=== PATIENT | female | born 1975 | race Hispanic/Latino ===

== ENCOUNTER 2017-05-06 13:46 | Outpatient (CLI) | payer SELFPAY | END 2017-05-06 13:47 | disposition home or self-care (01) | LOC: BICMAMMO 13:46 | PROVIDERS: ATTEND Nurse Practitioner Family | DX: Z12.31 Encounter for screening mammogram for malignant neoplasm of breast (principal) | CPT/HCPCS: 77063; 77067 ==

== ENCOUNTER 2018-05-01 07:15 | Inpatient (IN) | payer SELFPAY ==
[2018-05-01] MEDS ORDERED: Ondansetron PF 4 MG/2 ML Vial IVP PRN (08:12)
[2018-05-01] MEDS ORDERED: Acetaminophen 500 MG TAB PO PRN (08:12)
[2018-05-01] MEDS ORDERED: Promethazine HCl 25 MG/ML VIAL IM PRN (08:12)
[2018-05-01] MEDS ORDERED: Lactated Ringer's 1,000 ML IV SCH ×3 (08:15→21:30)
--- NOTE | 2018-05-01 08:33 | PDOC.EVN ---
Event Note - Event Note Event Note: Faculty H&P (consult) Attestation 42 yo G1Po at 37 weeks and 2 weeks with known cardiac failure of unknown etiology by ECHO (NYHA class I)...EJ last check was preserved...Diastolic HR grade 2. This was diagnosed EARLY in and followed by Cardiology ( [place]?). Here for scheduled induction based on this HX...no meds as ASX at this time. On Low Dose ASA. This cardiac issue was found on PE with murmer. Patient has just arrived in L&D for induction. Full write up pending eval by resident team Our assessment and plan is to: 1. Fully assess 2. Notify cardiology VIVIANA 3. Check CERVIX 4. Early term delivery medically indicated due to cardiac dysfunctioin to prevent decompensation with advancing EGA 5. AMA: NICU to eval child
--- NOTE | 2018-05-01 09:03 | PDOC.FPROB ---
FMR OB H&P: HPI - History of Present Illness Chief Complaint: Medically indicated IOL for HFpEF Indentification: 42 year old at 37.1 wks by LMP/10.2 wk sono History of Present Illness: 42 year old at 37.1 wks by LMP/8.1 wk sono presents for medically indicated IOL for HFpEF. Patient is AMA at 41 wks, this is her first . She has Grade II diastolic HF, NYHA Class I. She has followed with Cardiology, Dr. Her, and MFM. Recommendations for IOL at 37 wks. Patient denies vaginal bleeding, vaginal discharge, LoF, contractions. Primary Care Physician: GERMANIA Mae FMR OB H&P: Current - Care : 1 Para: 0 Gestational age: 37.1 wks Due date: 05/21/2018 Dating Criteria: LMP/10.2 wk sono - OB Labs Blood type: O RH: positive Antibody Screen: negative HIV: negative RPR: negative HepBsAg: negative Rubella: immune Quad screen: negative Gonorrhea: negative Chlamydia: negative Pap Smear: NILM, HR HPV + 1 hour gtt: 89 Additional labs: BNP: 1389 24h protein: 120 FMR OB H&P: History - Past Medical History PMH: Denies - OB History OB History: HFpEF Grade II: NYHA Class I: Last seen by Dr. Her on 04/21/2018. Echo stable. BNP 1389. Mild concentric LVH, bi-atrial enlargement. LVEF 60-65%. On ASA. AMA: NIPT negative. Followed with MFM. Growth scans appropriate. On ASA. HRHPV: Co-testin 10/2018 Posterior fibroid: Placenta anterior. growth appropriate. EFW at 29.2 wks 1398g (54%). UA S/D ratio 2.38 Anemia of Placenta abnormalities: Multiple large lakes. TORCH workup negative. Noted to have placental vs. uterine synechia in lower segment at one time, but not mentioned in 2T sono. - GAS REGULATOR REPAIRER History GAS REGULATOR REPAIRER History: HR HPV: repeat cotesting in 10/2018. - Surgical History Sx History: Denies - Social History Social History: Denies alcohol, tobacco, or drug use. - Family History Family History: Insignificant FMR OB H&P: Medications - Current Allergies/Adverse Reactions: Allergies Allergy/AdvReac Type Severity Reaction Status Date / Time No Known Allergies Allergy Verified 05/01/18 08:01 FMR OB H&P: ROS - Review of Systems General: denies: fever/chills, weight/appetite/sleep changes Eyes: denies: eye pain, vision changes ENT: denies: nasal congestion, rhinorrhea, sore throat Cardiovascular: denies: chest pain, palpitation, edema Respiratory: reports: shortness of breath (over past 2 weeks). denies: cough, congestion Gastrointestinal: denies: abdominal pain, nausea, vomiting, diarrhea Genitourinary (Female): denies: incontinence, dysuria, vaginal discharge, vaginal pain, vaginal bleeding, contractions Musculoskeletal: denies: pain, stiffness Neurologic: denies: numbness, syncope Integumentary: denies: itching, rash Endocrine: denies: cold intolerance Hematologic/Lymphatic: denies: prolonged or excessive bleeding Psychological: denies: depression, anxiety FMR OB H&P: Vital Signs - Maternal Vital signs: BP 114/73 Pulse 70 Afebrile - Heart Tones Baseline: 130 Variability: moderate Acceleration: present Deceleration: absent Category: category 1 [place] contractions every: Irritability FMR OB H&P: Physical Exam - Physical Exam General: NAD, awake, alert and oriented HEENT: EOMI, MMM, grossly normal vision, grossly normal hearing Neck: supple Heart: RRR, normal S1/S2, other (4/6 systolic murmur) General: CTAB, no respiratory distress Abdomen: soft, gravid, non-tender Musculoskeletal: pulses present, FROM in all four extremities Neurological: no tremor, no focal deficit Skin: no rash, capillary refill <2 seconds Lymphatic: no unusual bruising or bleeding, no purpura Psychiatric: intact recent and remote memory, good judgement and insight, normal mood and affect FMR OB H&P: A/P - Problem List (1) Term Current Visit: Yes Status: Acute Code(s): Z34.80 - ENCOUNTER FOR SUPRVSN OF NORMAL , UNSP TRIMESTER (2) (HFpEF) heart failure with preserved ejection fraction Current Visit: Yes Status: Acute Code(s): I50.30 - UNSPECIFIED DIASTOLIC ( CONGESTIVE) HEART FAILURE (3) NYHA class 1 heart failure with preserved ejection fraction Current Visit: Yes Status: Acute Code(s): I50.30 - UNSPECIFIED DIASTOLIC ( CONGESTIVE) HEART FAILURE (4) Anemia affecting Current Visit: Yes Status: Acute Code(s): O99.019 - ANEMIA COMPLICATING , UNSPECIFIED TRIMESTER (5) AMA (advanced maternal age) multigravida 35+ Current Visit: Yes Status: Acute Code(s): O09.529 - SUPERVISION OF ELDERLY MULTIGRAVIDA, UNSPECIFIED TRIMESTER (6) Fibroid Current Visit: Yes Status: Acute Code(s): D21.9 - BENIGN NEOPLASM OF CONNECTIVE AND OTHER SOFT TISSUE, UNSP (7) Placental abnormality Current Visit: Yes Status: Acute Code(s): O43.109 - MALFORMATION OF PLACENTA , UNSPECIFIED, UNSPECIFIED TRIMESTER Disposition: 42 year old at 37.1 wks by LMP/10.2 wk sono presents for medically indicated IOL for HFpEF 1. Term IUP presents for IOL - 37.1 wks 2. HFpEF, Grade II - Echo in stable - Followed with Cardiology, Dr. Her (last seen 04/21/2018) - Prior BNP 1389 - Cardiology consulted; appreciate recs - PAVING PLANT OPERATOR consulted; appreciate recs - Repeat BNP, CMP - On ASA - Patient reports worsening shortness of breath over last 2 weeks, prompting IOL 3. AMA - NIPT negative - Followed with MFM - Growth scans appropriate - BPP/NST's reassuring - Category I strip - On ASA 4. Posterior fibroid - Placenta anterior - growths appropriate - 8x7 cm, stable - Risk for PPH 5. Placental abnormalities - Multiple large lakes - TORCH titers negative - Appropriate growth; Last EFW at 29.2 wks documented shows 1398 g (54%), UA S/ D ratio 2.38 6. Anemia of - 11.1/32 H/H - Continue to monitor - H&H pending 7. HR HPV - Repeat cotesting 10/2018 8. GERD - On medication Dispo: Plan to have patient evaluated by Cardiology and PAVING PLANT OPERATOR prior to initiation of IOL. Will perform cervical check and plan for pitocin/cytotec depending on favorability of cervix once ok'd by specialists. Discussion: Date/Time: 05/01/18 0901 This H&P was discussed with Dr. Alan who agrees with the above documentation and plan. OBGYN Regulator Assembler Faculty Note: Cardiology aware and he will come eval her. She is closed and thick. Position vertex. MFM had discussed with [place] () and cleared for early term delivery....planned for induction. I have reviewed the case with Dr Armstrong and agree with plan. MD Nile Signature: Dasia Armstrong, DO PGY-2 Addendum - Attending - Attending Attestation Date/Time: 05/01/18 4330 I personally evaluated the patient and discussed the management with Dr. Armstrong I agree with the History, Examination, Assessment and Plan documented above with any addition or exceptions noted below- 42 year old at 37.1 wks by LMP /8.1 wk sono presents for medically indicated IOL for HFpEF. Patient is AMA at 41 wks, this is her first . She has Grade II diastolic HF, NYHA Class I. She has followed with Cardiology, Dr. Her, and [facility]- Dr. Dewey. Recommendations for IOL at 37 wks. Patient denies vaginal bleeding, vaginal discharge, LoF, contractions. Afebrile VSS SVE closed/thick/high per resident. Category 1 FHTs. [place]- occasional ctx. A/P: 1) IUP@37 1/7 weeks with HFpEF- NY Heart class 1- will consult cardiology and plan to proceed with induction if no contraindications by cardiology.
[2018-05-01 09:58] LABS: Hemoglobin 12.6 g/dL (12.0-16.0); Mean Corpuscular HGB CONC 33.6 g/dL (32.0-36.0); Mean Corpuscular Hemoglobin 31.7 pg (27.0-31.0); Mean Corpuscular Volume 94.5 fL (78.0-98.0); Platelet Count 196 thou/uL (130-400); RBC Distribution Width 12.6 % (11.5-14.5); Red Blood Cell (RBC) Count 3.97 mill/uL (4.20-5.40); White Blood Cell (WBC) Count 9.5 thou/uL (4.8-10.8)
[2018-05-01 10:20] LABS: ALT (SGPT) 28 U/L (8-55); AST (SGOT) 33 U/L (5-34); Albumin 3.2 g/dL (3.5-5.0); Alkaline Phosphatase 243 U/L (40-150); Anion Gap 14 mmol/L (10-20); BUN (Urea Nitrogen) 9 mg/dL (7.0-18.7); Calc. Creatinine Clearance 0 mL/min (70-130); Calcium 8.9 mg/dL (7.8-10.44); Carbon Dioxide 18 mmol/L (22-29); Chloride 108 mmol/L (98-107); Estimated GFR-MDRD Greater than 90; Globulin 3.2 g/dL (2.4-3.5); Glucose 72 mg/dL (70-105); Protein, Total 6.4 g/dL (6.0-8.3); Sodium 136 mmol/L (136-145)
--- NOTE | 2018-05-01 10:34 | PDOC.EVN ---
Event Note - Event Note Event Note: Cervical exam at 10:30 closed/thick/high Bedside sono performed, confirming cephalic presentation. Dasia Armstrong, DO PGY-2
[2018-05-01 10:38] LABS: HBSAg Index 0.26 S/CO (0-0.99); Hep B Surf Ag Non-Reactive S/CO (NonReactive)
[2018-05-01 10:44] LABS: Syphilis Antibody Nonreactive (Nonreactive); Syphilis Antibody Index 0.05 S/CO (<1.00 Non-Reactive)
--- NOTE | 2018-05-01 11:02 | PDOC.APC ---
Antepartum Consult SUJATHA REYNOLDS is a 42 year old female at [] gestational weeks. OBGYN Consult requested by Dr Adela Puente () MFM has cleared the patient for early term induction due to diastolic dysfunction. She is on low dose ASA but not lovenox. Cardiology aware. Please see my other event notes and H&P entry for full details. DX: idiopathic cardiac dysfunction (diastolic), for early term induction. Labs: Ante Labs Blood Type O POSITIVE 05/01/18 09:48 Hep Bs Antigen Non-Reactive S/CO (NonReactive) 05/01/18 09:48
[2018-05-01] MEDS ORDERED: ePHEDrine/0.9% NaCl/PF SYRINGE 50 mg/10 ml ONE (11:11)
[2018-05-01 11:12] VITALS: BMI 28.7
[2018-05-01] MEDS ORDERED: Lidocaine 1% (PF) 30 ML VIAL SC PRN (21:15)
[2018-05-01] MEDS ORDERED: NS / Oxytocin 40 units/1000ml 1,000 ML IV PRN (21:15)
[2018-05-01] MEDS: Lactated Ringer's 1,000 ML IV SCH (21:42)
[2018-05-01] MEDS: Misoprostol 100 MCG TAB VAG SCH (21:42)
--- NOTE | 2018-05-02 00:33 | CON ---
DATE OF CONSULTATION: HISTORY OF PRESENT ILLNESS: This is a 42-year-old female, who has been evaluated by Dr. Her before. She is in the hospital to be induced at the present time. She has been told that she had a heart murmur since she was born. She has never had problems with recent chest pains or shortness of breath. Echocardiogram in the office in December 2017 revealed ejection fraction of 60% to 65% with grade 2 diastolic dysfunction, mild concentric left ventricular hypertrophy, biatrial enlargement, mild tricuspid regurgitation, and mild mitral regurgitation. It was felt that this would not cause any significant hemodynamic problems during delivery. PAST MEDICAL HISTORY: No major illnesses except the murmur. PAST SURGICAL HISTORY: None. MEDICATIONS: 1. Aspirin 81 mg daily. 2. vitamins. ALLERGIES: NONE. SOCIAL HISTORY: She does not smoke. PHYSICAL EXAMINATION: VITAL SIGNS: Blood pressure 114/73 pulse of 79. HEENT: PERRL. CHEST: Clear. CARDIAC: S1, S2 normal without any S3, S4. There is a 2 to 3/6 systolic ejection murmur along the left sternal border. Carotid upstrokes normal. ABDOMEN: . EXTREMITIES: Reveal trace pretibial edema. NEUROLOGIC: Grossly intact. SKIN: Warm and dry. LABORATORY DATA: CBC is unremarkable. Sodium 136, potassium 4.0, chloride 108, carbon dioxide 18, BUN 9, creatinine 0.56. BNP 631.4. ASSESSMENT: 1. Term gestational . 2. Evidence of diastolic dysfunction on echocardiogram. 3. Mild left ventricular hypertrophy. PLAN: The patient will be labor induced and we will follow the patient with you. Job ID: [id number] MTDD
--- NOTE | 2018-05-02 02:09 | PDOC.LDPN ---
Labor & Delivery Progress Note - Subjective Subjective: comfortable - Objective Abnormal vital signs: 84/61 BP General: NAD, resting Dilation: 0 Effacement: 0% Station: -3 FHT: category 1 (150/mod/+accel/no decel) [place] contractions every: 2-4 min Plan: labor augmentation -: 42 year old at 37.2 wks by LMP/10.2 wk sono presents for medically indicated IOL for HFpEF IOL - 37.2 wks - Cardiology consulted; Dr. Cobb cleared patient for induction - LR @ 75 considering HFpEF, will closely monitor urine output - Cat 1 strip, ctx q2-4 min. - closed/thick/high @ 21:30 - cytotec placed - closed/thick/high @ 00:45 - will plan to wait 30 minutes to see if ctx space out, then will consider placing another cytotec
[2018-05-02] MEDS ORDERED: NS w/ Oxytocin 10 units 500 ML ONE (08:19)
[2018-05-02] MEDS ORDERED: Misoprostol 200 MCG TAB PR PRN (08:23)
[2018-05-02] MEDS ORDERED: NS w/ Oxytocin 10 units 500 ML IV SCH (08:30)
--- NOTE | 2018-05-02 10:05 | PDOC.LDPN ---
Labor & Delivery Progress Note - Subjective Subjective: comfortable, no concerns - Objective Vital signs reviewed and normal: yes General: NAD, resting Uterine fundus: non tender SVE: bloody show Dilation: 4 Effacement: 75% (80) Station: -2 FHT: category 1, variability present (moderate, baseline 130s,accels present, no decels) [place] contractions every: 4-6 - Assessment (1) (HFpEF) heart failure with preserved ejection fraction Code(s): I50.30 - UNSPECIFIED DIASTOLIC (CONGESTIVE) HEART FAILURE Current Visit: Yes Status: Acute (2) AMA (advanced maternal age) multigravida 35+ Code(s): O09.529 - SUPERVISION OF ELDERLY MULTIGRAVIDA, UNSPECIFIED TRIMESTER Current Visit: Yes Status: Acute (3) Anemia affecting Code(s): O99.019 - ANEMIA COMPLICATING , UNSPECIFIED TRIMESTER Current Visit: Yes Status: Acute (4) Fibroid Code(s): D21.9 - BENIGN NEOPLASM OF CONNECTIVE AND OTHER SOFT TISSUE, UNSP Current Visit: Yes Status: Acute (5) NYHA class 1 heart failure with preserved ejection fraction Code(s): I50.30 - UNSPECIFIED DIASTOLIC (CONGESTIVE) HEART FAILURE Current Visit: Yes Status: Acute (6) Term Code(s): Z34.80 - ENCOUNTER FOR SUPRVSN OF NORMAL , UNSP TRIMESTER Current Visit: Yes Status: Acute -: 42 yo at 37.2 by LMP c/w 10.2 wk US presents for medically induced IOL due to HFpEF IOL -Cardiology consulted: Dr. Lomas cleared pt -LR @75, will monitor closely -Cat 1 strip, contractions 4-6 minutes -Pitocin at 6 -Check /-2 -Recheck in 3-4 hrs
--- NOTE | 2018-05-02 12:29 | PDOC.LDPN ---
Labor & Delivery Progress Note - Subjective Subjective: comfortable - Objective Vital signs reviewed and normal: yes General: NAD SVE: 5/90%/-2 FHT: category 1 [place] contractions every: q3 min - Assessment (1) Term Code(s): Z34.80 - ENCOUNTER FOR SUPRVSN OF NORMAL , UNSP TRIMESTER Current Visit: Yes Status: Acute (2) (HFpEF) heart failure with preserved ejection fraction Code(s): I50.30 - UNSPECIFIED DIASTOLIC (CONGESTIVE) HEART FAILURE Current Visit: Yes Status: Acute (3) NYHA class 1 heart failure with preserved ejection fraction Code(s): I50.30 - UNSPECIFIED DIASTOLIC (CONGESTIVE) HEART FAILURE Current Visit: Yes Status: Acute (4) Anemia affecting Code(s): O99.019 - ANEMIA COMPLICATING , UNSPECIFIED TRIMESTER Current Visit: Yes Status: Acute (5) AMA (advanced maternal age) multigravida 35+ Code(s): O09.529 - SUPERVISION OF ELDERLY MULTIGRAVIDA, UNSPECIFIED TRIMESTER Current Visit: Yes Status: Acute (6) Fibroid Code(s): D21.9 - BENIGN NEOPLASM OF CONNECTIVE AND OTHER SOFT TISSUE, UNSP Current Visit: Yes Status: Acute (7) Placental abnormality Code(s): O43.109 - MALFORMATION OF PLACENTA, UNSPECIFIED, UNSPECIFIED TRIMESTER Current Visit: Yes Status: Acute -: IUP@ 37 2/7 weeks with HFpEF undergoing induction Continue pitocin; patient progressing well. Category 1 FHTs. Continue to monitor fluids closely.
[2018-05-02] MEDS: Lactated Ringer's 1,000 ML IV SCH (12:56)
[2018-05-02] MEDS ORDERED: Fentanyl 4 mcg/Bup 0.1% Cadd 100 ML ONE (15:03)
[2018-05-02] MEDS ORDERED: Lidocaine 1.5%/Epinephrine 1:200,000 5 ML AMPUL IJ ONE (15:04)
--- NOTE | 2018-05-02 15:49 | PDOC.LDPN ---
Labor & Delivery Progress Note - Subjective Subjective: painful contractions - Objective Vital signs reviewed and normal: yes General: breathing through contractions SVE: 5/90%/-2 FHT: category 1 [place] contractions every: q2 min - Assessment (1) Term Code(s): Z34.80 - ENCOUNTER FOR SUPRSRIDHAR OF NORMAL , UNSP TRIMESTER Current Visit: Yes Status: Acute (2) (HFpEF) heart failure with preserved ejection fraction Code(s): I50.30 - UNSPECIFIED DIASTOLIC (CONGESTIVE) HEART FAILURE Current Visit: Yes Status: Acute (3) NYHA class 1 heart failure with preserved ejection fraction Code(s): I50.30 - UNSPECIFIED DIASTOLIC (CONGESTIVE) HEART FAILURE Current Visit: Yes Status: Acute (4) Anemia affecting Code(s): O99.019 - ANEMIA COMPLICATING , UNSPECIFIED TRIMESTER Current Visit: Yes Status: Acute (5) AMA (advanced maternal age) multigravida 35+ Code(s): O09.529 - SUPERVISION OF ELDERLY MULTIGRAVIDA, UNSPECIFIED TRIMESTER Current Visit: Yes Status: Acute (6) Fibroid Code(s): D21.9 - BENIGN NEOPLASM OF CONNECTIVE AND OTHER SOFT TISSUE, UNSP Current Visit: Yes Status: Acute (7) Placental abnormality Code(s): O43.109 - MALFORMATION OF PLACENTA, UNSPECIFIED, UNSPECIFIED TRIMESTER Current Visit: Yes Status: Acute -: IUP@37 2/7 weeks undergoing induction Pitocin @18 mu/min Category 1 FHTs Desires epidural. will consult anesthesia. Recheck after epidural and attempt to AROM.
[2018-05-02] MEDS ORDERED: Ondansetron PF 4 MG/2 ML Vial ONE ×2 (16:21→17:47)
[2018-05-02] MEDS ORDERED: ePHEDrine 50 MG/ML VIAL ONE (16:21)
--- NOTE | 2018-05-02 16:57 | PDOC.EVN ---
Event Note - Event Note Event Note: CTSP by Dr. Alan re: SVE. G1 at 37 weeks being induced for CHF, uncertain etiology. Has known 8-10 cm posterior fibroid. Pt. has recently spontaneously ruptured, epidural in place. SVE by me c/w face presentation at -3 station, mentum posterior. Arch appears narrowed. USG at bedside also suggests face presentation. Fhts are stable, small variables with good return are noted. Plan; Consider 1* C/s for malpresentation.
[2018-05-02] MEDS ORDERED: Bicitra 30 ML UDCUP PO SCH (17:00)
[2018-05-02] MEDS ORDERED: Azithromycin 500 MG VIAL ONE (17:07)
--- NOTE | 2018-05-02 17:09 | PDOC.LDPN ---
Labor & Delivery Progress Note - Subjective Subjective: comfortable - Objective Vital signs reviewed and normal: yes General: NAD SVE: 5/-3 FHT: category 1 [place] contractions every: q2min - Assessment (1) Term Code(s): Z34.80 - ENCOUNTER FOR SUPRVSN OF NORMAL , UNSP TRIMESTER Current Visit: Yes Status: Acute (2) (HFpEF) heart failure with preserved ejection fraction Code(s): I50.30 - UNSPECIFIED DIASTOLIC (CONGESTIVE) HEART FAILURE Current Visit: Yes Status: Acute (3) NYHA class 1 heart failure with preserved ejection fraction Code(s): I50.30 - UNSPECIFIED DIASTOLIC (CONGESTIVE) HEART FAILURE Current Visit: Yes Status: Acute (4) Anemia affecting Code(s): O99.019 - ANEMIA COMPLICATING , UNSPECIFIED TRIMESTER Current Visit: Yes Status: Acute (5) AMA (advanced maternal age) multigravida 35+ Code(s): O09.529 - SUPERVISION OF ELDERLY MULTIGRAVIDA, UNSPECIFIED TRIMESTER Current Visit: Yes Status: Acute (6) Fibroid Code(s): D21.9 - BENIGN NEOPLASM OF CONNECTIVE AND OTHER SOFT TISSUE, UNSP Current Visit: Yes Status: Acute (7) Placental abnormality Code(s): O43.109 - MALFORMATION OF PLACENTA, UNSPECIFIED, UNSPECIFIED TRIMESTER Current Visit: Yes Status: Acute -: IUP@ 37 2/7 weeks undergoing induction for HFpEF Patient comfortable with epidural. SROM clear fluid at 1611 SVE /.3- face presentation; confirmed on USG and by Dr. Dickson. Discussed situation with patient and . Discussed that with face presentation and mentum posterior and uterine fibroid that she will not be able to deliver vaginally. Discussed need to proceed with 1*C/S. All questions answered. Will contact anesthesia and nursery.
[2018-05-02] MEDS ORDERED: Bicitra 30 ML UDCUP ONE (17:10)
[2018-05-02] MEDS ORDERED: Lidocaine 2% 10 ML INJ ONE (17:16)
[2018-05-02] MEDS ORDERED: EPINEPHrine 1 MG/ML AMP ONE (17:16)
[2018-05-02] MEDS ORDERED: MORPHINE 5 MG/10 ML PF VIAL ONE (17:46)
[2018-05-02] MEDS ORDERED: Fentanyl 100 MCG/2 ML VIAL ONE (17:46)
[2018-05-02] MEDS ORDERED: Oxytocin 10 UNITS/ML VIAL ONE (17:46)
[2018-05-02] MEDS ORDERED: Promethazine HCl 25 MG/ML VIAL IM PRN ×2 (18:01→19:40)
[2018-05-02] MEDS ORDERED: Ondansetron HCl/PF 4 MG/2 ML Vial IVP PRN (18:01)
[2018-05-02] MEDS ORDERED: Naloxone HCl 0.4 mg/ml Vial IVP PRN ×2 (18:01)
[2018-05-02] MEDS ORDERED: Ondansetron PF 4 MG/2 ML Vial IVP PRN ×2 (18:01→19:40)
[2018-05-02] MEDS ORDERED: Meperidine HCl/PF 25 MG/ML VIAL SLOW IVP PRN (18:01)
[2018-05-02] MEDS ORDERED: HYDROmorphone 2 MG/ML VIAL SLOW IVP PRN (18:01)
[2018-05-02] MEDS ORDERED: diphenhydrAMINE 50 MG/ML VIAL IVP PRN (18:01)
[2018-05-02] MEDS ORDERED: Promethazine HCl 25 MG SUPP PR PRN (18:01)
[2018-05-02] MEDS ORDERED: Naloxone HCl 0.4 mg/ml Vial IV PRN (18:01)
[2018-05-02] MEDS ORDERED: L&D-Morphine 4 MG/ML VIAL SLOW IVP PRN (18:01)
[2018-05-02] MEDS ORDERED: Acetaminophen 1,000 MG in Premix Bag 1 BAG IVPB PRN (18:01)
[2018-05-02] MEDS ORDERED: Hydrocerin (Eucerin) Cream 120 gm Jar TOP PRN (18:01)
[2018-05-02] MEDS ORDERED: Communication Order-Pharmacy FS SCH (18:15)
[2018-05-02] MEDS ORDERED: Ketorolac Tromethamine 30 MG/ML VIAL IVP SCH ×2 (18:15→23:59)
[2018-05-02] MEDS ORDERED: Lanolin Ointment 7 GM TUBE TOP PRN (19:40)
[2018-05-02] MEDS: Docusate Calcium (SURFAK) 240 MG CAP PO SCH (22:06)
[2018-05-02] MEDS: Ferrous Sulfate 325 MG TAB PO SCH (22:06)
--- NOTE | 2018-05-03 00:40 | PDOC.OBPPN ---
FMR OB PN: Subj - Interval History Day: 1 FMR OB PN: Obj - Maternal Vital signs: BP: [] HR: [] RR: [] Tmax: [] Pox: []% on [] Wt: [] FMR OB PN: A/P Discussion: Date/Time: 05/03/1837 This H&P was discussed with [] and [] who agree with the above documentation and plan. - History of Present Illness History of Present Illness: 42 yo G1 @37.2 s/p primary LTCS 2/2 posterior uterine fibroid, face presentation, and failure to progress. Doing well. Endorses minimal abdominal pain. Urine draining blood tinged urine currently. Endorses passage of some small clots and mild vaginal bleeding. - Allergies/Adverse Reactions Allergies Allergy/AdvReac Type Severity Reaction Status Date / Time No Known Allergies Allergy Verified 05/01/18 08:01 - Home Medications Medication Instructions Recorded Confirmed Type Vitamin 1 tablet PO DAILY 05/02/18 05/02/18 History - History PMHx: PSHx: FHx: Social:
--- NOTE | 2018-05-03 00:48 | PDOC.PP ---
Post Progress Note Post Day #: 0 Subjective: 42 yo G1 @37.2 s/p primary LTCS 2/2 posterior uterine fibroid, face presentation, and failure to progress. Doing well. Endorses minimal abdominal pain. Urine draining blood tinged urine currently. Endorses passage of some small clots and mild vaginal bleeding. PO intake tolerated: yes Flatus: no Ambulation: no Vital Signs (12 hours) Temp Pulse Resp BP Pulse Ox 05/03/18 00:10 98.2 F 75 16 107/58 L 95 05/02/18 21:35 97.7 F 73 16 101/68 97 Weight Weight 66.678 kg - Physical Examination General: NAD Cardiovascular: no m/r/g, RRR Respiratory: clear to auscultation bilaterally, non-labored breathing Deviation from normal: hypoactive bowel sounds Fundus firm & at: umbilicus Skin: CS incision dry & intact Neurological: no gross focal deficits Psychiatric: A&Ox3, normal affect Result Diagrams: 05/03/18 06:23 05/01/18 09:48 Additional Labs: Post Labs Blood Type O POSITIVE 05/01/18 09:48 Hep Bs Antigen Non-Reactive S/CO (NonReactive) 05/01/18 09:48 (1) Term Code(s): Z34.80 - ENCOUNTER FOR SUPRN OF NORMAL , UNSP TRIMESTER Status: Acute (2) S/P primary low transverse Code(s): Z98.891 - HISTORY OF UTERINE SCAR FROM PREVIOUS SURGERY Status: Acute (3) (HFpEF) heart failure with preserved ejection fraction Code(s): I50.30 - UNSPECIFIED DIASTOLIC (CONGESTIVE) HEART FAILURE Status: Acute (4) AMA (advanced maternal age) multigravida 35+ Code(s): O09.529 - SUPERVISION OF ELDERLY MULTIGRAVIDA, UNSPECIFIED TRIMESTER Status: Acute (5) Fibroid Code(s): D21.9 - BENIGN NEOPLASM OF CONNECTIVE AND OTHER SOFT TISSUE, UNSP Status: Acute (6) Placental abnormality Code(s): O43.109 - MALFORMATION OF PLACENTA, UNSPECIFIED, UNSPECIFIED TRIMESTER Status: Acute (7) Anemia affecting Code(s): O99.019 - ANEMIA COMPLICATING , UNSPECIFIED TRIMESTER Status : Acute - Assessment/Plan 42 yo G1 @37.2 s/p primary LTCS 2/2 posterior uterine fibroid, face presentation, and failure to progress, pod 0 #sIUP, delivered via primary LTCS- -continue routine post op care. Pt initially with lightly blood tinged urine, now boinfacio in the urinary catheter tubing. Continue to monitor urine output. Adequate so far. ~36ml/hr; plan to pull kay in the am. -pain controlled; norco, ibuprofen, tylenol prn pain -pt tolerating ice chips; continue to advance diet as tolerated -encourage ambulation after pulling kay in the am -pt has not passed flatus or had a bowel movement; will provide bowel regimen and continue to monitor -passing of small clots and bleeding; continue to monitor -incision clean, dry, and intact -hemagram in the am #HFpEF- -NYHA Class I: Last seen by Dr. Her on 04/21/2018. Echo stable. BNP 1389. Mild concentric LVH, bi-atrial enlargement. LVEF 60-65%. -systolic murmur on exam, stable from PNC, no s/s of fluid overload -continue to monitor I/Os and UOP #Anemia of -hemagram pending -iron po bid #AMA: NIPT negative. #HRHPV: Co-testing 10/2018 #Posterior fibroid #Placenta abnormalities: Multiple large lakes. TORCH workup negative. Addendum - Attending - Attending Attestation Date/Time: 05/03/18 3453 I personally evaluated the patient and discussed the management with Dr. Miller I agree with the History, Examination, Assessment and Plan documented above with any addition or exceptions noted below. Pt seen 6 hrs postoperatively. Pain controlled. Denies dizziness, cp, sob. No blood seen in kay bag. Urine output adequate Continue routine postoperative care
--- NOTE | 2018-05-03 01:47 | OP ---
DATE OF PROCEDURE: 05/02/2018 PRIMARY SURGEONS: 1. Kevin Mae M.D. 2. Meron Groves MD Attending SURGEON: Dr. Alfreda Stein., Dr. Flo Dickson PROCEDURE: Primary low transverse . PREOPERATIVE DIAGNOSES: 1. Term intrauterine . 2. Heart failure with preserved ejection fraction, grade 2. 3. Advanced maternal age. 4. Posterior fibroid. 5. Anemia of . 6. 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 POSTOPERATIVE DIAGNOSES: 1. Term intrauterine . 2. Heart failure with preserved ejection fraction, grade 2. 3. Advanced maternal age. 4. Posterior fibroid. 5. Anemia of . 6. 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 ANESTHESIA: Epidural. INDICATIONS: This is a 42-year-old G1, P0 female at 37 and 2 weeks gestation who was induced secondary to diastolic heart failure with new symptoms of shortness of breath on recommendation of [facility]. At dilatation of 5 cm, the baby was noted to have face presentation, thus on considering posterior fibroid, decision was made for section. PROCEDURE IN DETAIL: After risks, benefits, and alternatives were explained to the patient, she gave informed consent. Preoperative antibiotics included cefazolin 2 g IV and azithromycin 500mg. The patient was taken to the operating room and epidural anesthesia was found to be sufficient. She was placed in the supine position with a left tilt and prepped and draped in the usual sterile fashion. A Pfannenstiel incision was made with a scalpel and carried down to the level of the fascia, which was sharply nicked. The fascial cut was extended bilaterally with Mcneill scissors. Inferior and superior edges of the cut fascial edges were elevated with Nolvia clamps and the underlying rectus muscles were bluntly dissected free. The recti were digitally divided and retracted manually. The peritoneum was entered bluntly and retracted medially. Upon examining the uterus, there was noted to be multiple varicosities. An Rwlqdk-[id number]-dqetngmfy was placed. Uterus was identified low. Bladder flap was not necessary. A low-transverse score was made with the scalpel and the uterus was entered slightly to the left of the midline in order to avoid the varicosities. Clear fluid was seen. Hysterotomy was extended manually. The was in vertex with the face presenting, easily reduced and then delivered by fundal pressure. Mouth and nares were bulb suctioned. Cord clamped and cut. Grossly normal female , handed to the waiting nurse. Cord blood was obtained. The placenta was manually extracted, found to be intact with three-vessel cord. Appeared to have marginal cord insertion and possibly bilobed. Sent to pathology. The uterus was externalized and the endometrium was curetted with a dry lap. The uterus was closed with a running 0 Monocryl suture. Following this, two figure-of- eight knots with 0-Monocryl were placed. Bleeders were bovied. The uterus was found to be free of bleeders. On examination of the uterus, there was a large posterior fibroid and also a large left-sided fundal fibroid was evident. The uterus was internalized after the daron-o ring was removed. The fascia was closed after the muscle bellies were examined and shown to be free of bleeders. The fascia was closed with a running 0-Vicryl suture. The subcutaneous tissue was irrigated and there were no bleeders. The subcutaneous tissue was closed with 3 simple interrupted sutures of 2-0 chromic. The skin was closed with a 2-0 Monocryl suture on a Ifeanyi needle. All counts were correct. The patient tolerated the procedure well, was taken to the recovery room in stable condition. ESTIMATED BLOOD LOSS: 1400 mL. COMPLICATIONS: None. SPECIMEN: Cord blood sent for type. FINDINGS: 1. Grossly normal female infant with Apgars of 9 and 9, delivered at 1608 hours with weight of 6 pounds 8 ounces on 05/02/2018. 2. Grossly normal placenta with three-vessel cord, discarded. 3. Drain: Schultz to gravity, draining clear urine. I was present for and assisted in the entire uncomplicated delivery performed by Rao Mae and Angela with intraoperative consultation from Dr. Dickson. I agree with above documentation. I do not agree with the QBL of 1400 as blood loss appeared much lower and clinically there was no evidence of hemorrhage. Edmundo Job ID: [id number] MTDD
[2018-05-03] MEDS: Lactated Ringer's 1,000 ML IV SCH ×2 (03:32→09:22)
[2018-05-03] MEDS ORDERED: Zolpidem Tartrate 5 MG TAB PO PRN (06:15)
[2018-05-03 06:55] LABS: Hemoglobin 10.6 g/dL (12.0-16.0); Mean Corpuscular HGB CONC 32.9 g/dL (32.0-36.0); Mean Corpuscular Volume 97.1 fL (78.0-98.0); Mean Platelet Volume 8.6 fL (7.4-10.4); Platelet Count 171 thou/uL (130-400); RBC Distribution Width 12.5 % (11.5-14.5); Red Blood Cell (RBC) Count 3.31 mill/uL (4.20-5.40); White Blood Cell (WBC) Count 11.1 thou/uL (4.8-10.8)
--- NOTE | 2018-05-03 07:06 | PDOC.PP ---
Addendum entered and electronically signed by Kevin Mae MD 05/03/18 07:16: Patient noted to have +1 edema at the ankles bilaterally Stopped fluids, encouraged ambulation, no SOB/cough, will monitor Original Note: Post Progress Note Post Day #: 1 Subjective: This morning patient states she slept well overnight. She states she is having some itching throughout her chest and arms but denies pain. The patient states she drank some juice and water last night. She did have episode of emesis, she states it was a small amount of water. The patient states she has not been walking yet because of the kay catheter but she would like to this AM. She denies cough, chest pain, or sob. No swelling. PO intake tolerated: yes Flatus: yes Ambulation: no Vital Signs (12 hours) Temp Pulse Resp BP Pulse Ox 05/03/18 04:00 98.3 F 77 16 102/64 05/03/18 00:10 98.2 F 75 16 107/58 L 95 05/02/18 21:35 97.7 F 73 16 101/68 97 Weight Weight 66.678 kg - Physical Examination General: NAD Cardiovascular: no m/r/g, RRR Respiratory: clear to auscultation bilaterally, non-labored breathing Abdominal: + bowel sounds, lochia, no distention, appropriately TTP Fundus firm & at: umbilicus, mild tenderness to palpation Extremities: negative homans (B) Skin: CS incision dry & intact, no rash Neurological: no gross focal deficits Psychiatric: A&Ox3, normal affect Result Diagrams: 05/03/18 06:23 05/01/18 09:48 Additional Labs: Post Labs Blood Type O POSITIVE 05/01/18 09:48 Hep Bs Antigen Non-Reactive S/CO (NonReactive) 05/01/18 09:48 (1) (HFpEF) heart failure with preserved ejection fraction Code(s): I50.30 - UNSPECIFIED DIASTOLIC (CONGESTIVE) HEART FAILURE Status: Acute (2) AMA (advanced maternal age) multigravida 35+ Code(s): O09.529 - SUPERVISION OF ELDERLY MULTIGRAVIDA, UNSPECIFIED TRIMESTER Status: Acute (3) Anemia affecting Code(s): O99.019 - ANEMIA COMPLICATING , UNSPECIFIED TRIMESTER Status : Acute (4) Fibroid Code(s): D21.9 - BENIGN NEOPLASM OF CONNECTIVE AND OTHER SOFT TISSUE, UNSP Status: Acute (5) NYHA class 1 heart failure with preserved ejection fraction Code(s): I50.30 - UNSPECIFIED DIASTOLIC (CONGESTIVE) HEART FAILURE Status: Acute (6) S/P primary low transverse Code(s): Z98.891 - HISTORY OF UTERINE SCAR FROM PREVIOUS SURGERY Status: Acute - Assessment/Plan 42 yo G1 @37.2 s/p primary LTCS 2/2 posterior uterine fibroid, face presentation, and failure to progress, pod 1 #sIUP, delivered via primary LTCS- -UO 0.75 ml/kr/hr overnight, advance diet -pain controlled; norco, ibuprofen, tylenol prn pain -2 pads overnight, less than a menses -fundus moderately tender, afebrile, will monitor #HFpEF- -NYHA Class I: Last seen by Dr. Her on 04/21/2018. Echo stable. BNP 1389. Mild concentric LVH, bi-atrial enlargement. LVEF 60-65%. -systolic murmur on exam - taking adequate PO fluids, will stop IV #Anemia of -hemagram pending -iron po bid - on bowel regimen #AMA: NIPT negative. #HRHPV: Co-testing 10/2018 #Posterior fibroid Dispo: 2 midnights Addendum - Attending - Attending Attestation Date/Time: 05/03/18 [id number] I personally evaluated the patient and discussed the management with Dr. Mae I agree with the History, Examination, Assessment and Plan documented above with any addition or exceptions noted below. Postoperative day #1 s/p uncomplicated PLTCS for mentum posterior presentation in the setting of a large posterior uterine fibroid. Pt doing well today. Denies pain, dizziness, shortness of breath. Has tolerated some PO Uterus is firm and 1 cm below umbilicus. Stable 3/6 ELIER on exam. No crackles. Mild LE edema. Urine output adequate. Appropriate drop in H+H postoperatively. Continue routine Postoperative care. Cardiology following. Appreciate input. Anticipate d/c to home on POD# 3.
[2018-05-03] MEDS ORDERED: Adacel (T-DAP) 0.5 ML SYRINGE IM ONE (09:00)
[2018-05-03] MEDS: Prenatal Vitamin 1 TAB PO SCH (09:19)
[2018-05-03] MEDS: HYDROcodone/Acetaminophen 5/325 mg Tablet PO PRN ×2 (09:20→17:47)
[2018-05-03] MEDS: Docusate Calcium (SURFAK) 240 MG CAP PO SCH ×2 (09:20→21:57)
[2018-05-03] MEDS: Ferrous Sulfate 325 MG TAB PO SCH (09:22)
[2018-05-03] MEDS: Misoprostol 100 MCG TAB VAG SCH (13:03)
[2018-05-03] MEDS: Simethicone Chewable 80 MG TAB PO PRN ×2 (17:43→23:44)
[2018-05-03] MEDS ORDERED: Ibuprofen 800 MG TAB PO SCH (20:00)
[2018-05-03] MEDS: Ibuprofen 800 MG TAB PO SCH (21:58)
[2018-05-04] MEDS: Ferrous Sulfate 325 MG TAB PO SCH ×2 (02:50→09:11)
[2018-05-04] MEDS: Ibuprofen 800 MG TAB PO SCH ×3 (05:37→21:16)
[2018-05-04] MEDS: Simethicone Chewable 80 MG TAB PO PRN (05:37)
[2018-05-04] MEDS: HYDROcodone/Acetaminophen 5/325 mg Tablet PO PRN ×2 (05:37→21:16)
[2018-05-04] MEDS ORDERED: Ibuprofen 800 MG TAB PO SCH (06:00)
--- NOTE | 2018-05-04 08:05 | PDOC.PP ---
Post Progress Note Post Day #: 2 Subjective: Patient states that she has not had much appetite. She did eat a good breakfast but states she only ate a little throughout the day after that. The patient states her pain is well-controlled with norco but still having occassional stabbing pain at the incision site. PO intake tolerated: yes Flatus: yes Ambulation: yes Vital Signs (12 hours) Temp Pulse Resp BP 05/04/18 05:35 97.6 F 73 20 97/63 05/04/18 00:00 98.4 F 90 18 102/60 Weight Weight 66.678 kg - Physical Examination General: NAD Cardiovascular: RRR Deviation from normal: 3/6 systolic murmur Respiratory: clear to auscultation bilaterally, non-labored breathing Abdominal: + bowel sounds, lochia, no distention, appropriately TTP Extremities: negative homans (B) Deviation from normal: trace edema bilaterally Skin: CS incision dry & intact, no rash Neurological: no gross focal deficits Psychiatric: A&Ox3, normal affect Result Diagrams: 05/03/18 06:23 05/01/18 09:48 Additional Labs: Post Labs Blood Type O POSITIVE 05/01/18 09:48 Hep Bs Antigen Non-Reactive S/CO (NonReactive) 05/01/18 09:48 (1) (HFpEF) heart failure with preserved ejection fraction Code(s): I50.30 - UNSPECIFIED DIASTOLIC (CONGESTIVE) HEART FAILURE Status: Acute (2) AMA (advanced maternal age) multigravida 35+ Code(s): O09.529 - SUPERVISION OF ELDERLY MULTIGRAVIDA, UNSPECIFIED TRIMESTER Status: Acute (3) Anemia affecting Code(s): O99.019 - ANEMIA COMPLICATING , UNSPECIFIED TRIMESTER Status : Acute (4) Fibroid Code(s): D21.9 - BENIGN NEOPLASM OF CONNECTIVE AND OTHER SOFT TISSUE, UNSP Status: Acute (5) NYHA class 1 heart failure with preserved ejection fraction Code(s): I50.30 - UNSPECIFIED DIASTOLIC (CONGESTIVE) HEART FAILURE Status: Acute (6) S/P primary low transverse Code(s): Z98.891 - HISTORY OF UTERINE SCAR FROM PREVIOUS SURGERY Status: Acute - Assessment/Plan 42 yo G1 @37.2 s/p primary LTCS 2/2 posterior uterine fibroid, face presentation, and failure to progress, pod 2 #sIUP, delivered via primary LTCS- -UO 1.5 ml/kg/hr -pain controlled; norco, ibuprofen, tylenol prn pain -minimal bleeder -fundus moderately tender, still afebrile, will monitor - no BM as of yet #HFpEF- -NYHA Class I: Last seen by Dr. Her on 04/21/2018. Echo stable. BNP 1389. Mild concentric LVH, bi-atrial enlargement. LVEF 60-65%. - systolic murmur on exam - taking adequate PO fluids - edema of the lower extremities is decreased #Anemia of - hgb 12.6 -> 10.6 - iron po bid - on bowel regimen #AMA: NIPT negative. #HRHPV: Co-testing 10/2018 #Posterior fibroid Dispo: anticipate d/c tomorrow Addendum - Attending - Attending Attestation Date/Time: 05/04/18 1028 I personally evaluated the patient and discussed the management with Dr. Mae I agree with the History, Examination, Assessment and Plan documented above with any addition or exceptions noted below. 42 yo G1 now P1001 POD #2 s/p uncomplicated PLTCS Pt reports pain is controlled. +Flatus. Tolerating PO but decreased appetite. Ambulating without dizziness. No CP, SOB. Voiding without difficulty. VSS. Afebrile, no tachycardia Lungs: CTA. No crackles CV: RRR with 3/6 ELIER Abd: Incision is clean, dry, intact without. Fundus is firm, appropriately TTP and 1cm below umbilicus. LE: trace LE edema bilaterally 1. Stable POD #2 -Meeting appropriate milestones -Continue routine care -Anticipate d/c to home on POD #3 or 4 2. Heart failure with preserved ejection fraction -Asymptomatic -Cardiology following. Appreciate recommendations 3. Acute blood loss anemia in setting of chronic anemia of -Appropriate drop in H+H postoperatively -Asymptomatic -Continue PO iron
[2018-05-04] MEDS: Docusate Calcium (SURFAK) 240 MG CAP PO SCH ×2 (09:11→21:16)
[2018-05-04] MEDS: Prenatal Vitamin 1 TAB PO SCH (09:11)
[2018-05-05] MEDS: Ibuprofen 800 MG TAB PO SCH (05:41)
[2018-05-05] MEDS: HYDROcodone/Acetaminophen 5/325 mg Tablet PO PRN (05:41)
[2018-05-05] MEDS: Ferrous Sulfate 325 MG TAB PO SCH ×2 (05:50→09:16)
[2018-05-05 06:05] VITALS: BP 108/72; TEMP 97.4
--- NOTE | 2018-05-05 06:08 | PDOC.PP ---
Post Progress Note Post Day #: 3 Subjective: Patient feeling much better today. Pain well-controlled, minimal abdominal pain. Eating well. had BM w/o difficulty. Less bleeding than a period. Swelling trace bilaterally. Patient walking well. PO intake tolerated: yes Flatus: yes Ambulation: yes Vital Signs (12 hours) Temp Pulse Resp BP BP Pulse Ox 05/05/18 05:40 97.4 F L 75 18 108/72 05/04/18 20:00 97.7 F 90 18 112/72 96 05/04/18 18:27 98.1 F 95 20 121/77 Weight Weight 66.678 kg - Physical Examination General: NAD Cardiovascular: RRR Deviation from normal: 3/6 systolic murmur Respiratory: clear to auscultation bilaterally, non-labored breathing Abdominal: + bowel sounds, lochia, no distention, appropriately TTP Extremities: negative homans (B) Deviation from normal: trace edema bilaterally Skin: CS incision dry & intact, no rash Neurological: no gross focal deficits Psychiatric: A&Ox3, normal affect Result Diagrams: 05/03/18 06:23 05/01/18 09:48 Additional Labs: Post Labs Blood Type O POSITIVE 05/01/18 09:48 Hep Bs Antigen Non-Reactive S/CO (NonReactive) 05/01/18 09:48 (1) (HFpEF) heart failure with preserved ejection fraction Code(s): I50.30 - UNSPECIFIED DIASTOLIC (CONGESTIVE) HEART FAILURE Status: Acute (2) AMA (advanced maternal age) multigravida 35+ Code(s): O09.529 - SUPERVISION OF ELDERLY MULTIGRAVIDA, UNSPECIFIED TRIMESTER Status: Acute (3) Anemia affecting Code(s): O99.019 - ANEMIA COMPLICATING , UNSPECIFIED TRIMESTER Status : Acute (4) Fibroid Code(s): D21.9 - BENIGN NEOPLASM OF CONNECTIVE AND OTHER SOFT TISSUE, UNSP Status: Acute (5) NYHA class 1 heart failure with preserved ejection fraction Code(s): I50.30 - UNSPECIFIED DIASTOLIC (CONGESTIVE) HEART FAILURE Status: Acute (6) S/P primary low transverse Code(s): Z98.891 - HISTORY OF UTERINE SCAR FROM PREVIOUS SURGERY Status: Acute - Assessment/Plan 42 yo G1 @37.2 s/p primary LTCS 2/2 posterior uterine fibroid, face presentation, and failure to progress, pod 3 #sIUP, delivered via primary LTCS- -UO not being tracked appropriately, same as it was at 6 am yesterday AM, patient states voiding normally -pain controlled; norco, ibuprofen, tylenol prn pain -fundus less tender than yesterday, appropriate - minimal bleeding - had bm w/o difficulty #HFpEF- -NYHA Class I: Last seen by Dr. Her on 04/21/2018. Echo stable. BNP 1389. Mild concentric LVH, bi-atrial enlargement. LVEF 60-65%. - systolic murmur on exam - taking adequate PO fluids - trace edema of lower extremities - f/u w/ cardiology in 1-2 weeks #Anemia of - hgb 12.6 -> 10.6 - iron po bid - on bowel regimen #AMA: NIPT negative. #HRHPV: Co-testing 10/2018 #Posterior fibroid Dispo: d/c today Addendum - Attending - Attending Attestation Date/Time: 05/05/18 1402 I personally evaluated the patient and discussed the management with Dr. Mae I agree with the History, Examination, Assessment and Plan documented above with any addition or exceptions noted below. Stable POD # 3 s/p PLTCS Meeting milestones Heart failure asymptomatic. D/c to home today.
[2018-05-05] MEDS: Docusate Calcium (SURFAK) 240 MG CAP PO SCH (09:15)
[2018-05-05] MEDS: Prenatal Vitamin 1 TAB PO SCH (09:15)
== END 2018-05-05 14:15 | disposition home or self-care (01) | DRG 787 ==
LOC: L&D 07:15 → 3SW 05-02 21:34
PROVIDERS: ADMIT Family Medicine; ATTEND Family Medicine
PROC: 3E033VJ Introduction of Other Hormone into Peripheral Vein, Percutaneous Approach (ICD-10-PCS; 2018-05-01)
PROC: 3E0P7VZ Introduction of Hormone into Female Reproductive, Via Natural or Artificial Opening (ICD-10-PCS; 2018-05-01)
PROC: 10D00Z1 Extraction of Products of Conception, Low, Open Approach (ICD-10-PCS; principal; 2018-05-02)
DX: O99.42 Diseases of the circulatory system complicating childbirth (principal); I50.32 Chronic diastolic (congestive) heart failure; D62 Acute posthemorrhagic anemia; O65.5 Obstructed labor due to abnormality of maternal pelvic organs; O32.3XX0 Maternal care for face, brow and chin presentation, not applicable or unspecified; O99.02 Anemia complicating childbirth; D64.9 Anemia, unspecified; D25.9 Leiomyoma of uterus, unspecified; Z3A.37 37 weeks gestation of pregnancy; Z79.82 Long term (current) use of aspirin; Z37.0 Single live birth
CPT/HCPCS: 36415; 51702; 76815; 80053; 83880; 85027; 86780; 86850; 86900; 86901; 87340; 88307; J0131; J0171; J0456; J1200; J1885; J2001; J2270; J2405; J2590; J3010; J3490

== ENCOUNTER 2018-08-25 16:22 | Outpatient (CLI) | payer OTHER ==
--- NOTE | 2018-08-26 07:34 | RAD ---
XR Thoracic Spine 3 V STANDARD History: Lumbar back pain Comparison: None. Findings: Lungs are clear. No pneumothorax. No effusion. No acute osseous abnormality. Vertebral body heights and disc spaces are maintained. Posterior ribs are intact. Impression: No acute fracture or malalignment of the thoracic spine.
== END 2018-08-25 16:23 | disposition home or self-care (01) ==
LOC: BICRAD 16:22
PROVIDERS: ATTEND Family Medicine
DX: M54.6 Pain in thoracic spine (principal)
CPT/HCPCS: 72072